=== PATIENT | male | born 1960 | race Caucasian/White ===

== ENCOUNTER 2020-12-28 23:47 | Emergency (ER) | payer OTHER, SELFPAY ==
--- NOTE | 2020-12-28 23:54 | DI.CT.S_ITS ---
PROCEDURE: CT HEAD/BRAIN WO CON INDICATIONS: sudden severe headache TECHNIQUE: Noncontrast 4.5 mm thick angled axial sections acquired from the foramen magnum to the vertex, with coronal and sagittal reformats. For radiation dose reduction, the following was used: automated exposure control, adjustment of mA and/or kV according to patient size. COMPARISON: None. FINDINGS: Image quality: Excellent. CSF spaces: Basal cisterns are patent. Posterior fossa arachnoid cyst which is producing mass effect on the midline of the sella nuclear medicine technician hemispheres. The ventricles are symmetric in size and shape. Brain: Subarachnoid hemorrhage noted in the suprasellar cistern, the basilar cisterns and in the 4th ventricle. There is cerebral volume loss for age, with resultant ventricular and sulcal prominence. There are periventricular and deep white matter chronic small vessel ischemic changes. There is intracranial internal carotid artery atherosclerosis. Skull and face: Calvarium and visualized facial bones appear intact, without suspicious lesions. Sinuses: Visualized sinuses and mastoids are clear. IMPRESSION: Acute subarachnoid hemorrhage involving the suprasellar cistern and basilar cisterns with extension into the 4th ventricle and the cisterna lamina. Finding suspicious for cerebral aneurysm rupture. Recommend CT angiogram of the head for further evaluation. Dictated by: Olya Peres MD, PhD on 12/29/2020 at 7:05 Approved by: Olya Peres MD, PhD on 12/29/2020 at 7:08
[2020-12-28 23:55] VITALS: BP 159/87; PULSE 71; RESP 22; TEMP 37.3; O2SAT 100
[2020-12-29] VITALS (9 sets, daily range): BP systolic 138–166; BP diastolic 73–94; PULSE 59–73; O2SAT 92–98
[2020-12-29 00:09] LABS: Add Manual Diff / Slide Review NO; Basophils Absolute Auto 100 /uL (0-100); Basophils Percent Auto 0.8 % (0-2); Eosinophils Absolute Auto 200 /uL (0-450); Eosinophils Percent Auto 3.1 % (2-4); Hematocrit 39.1 % (41-53); Hemoglobin 13.3 g/dL (13.5-17.5); Lymphocytes Absolute Auto 2500 /uL (1100-4500); Lymphocytes Percent Auto 32.8 % (25-40); Mean Corpuscular HGB Conc 33.9 % (30-36); Mean Corpuscular Hemoglobin 29.3 PG (26-34); Mean Corpuscular Volume 86.3 fL (80-100); Monocytes Absolute Auto 800 /uL (0-900); Monocytes Percent Auto 10.4 % (3-14); Neutrophils Absolute Auto 4100 /uL (1500-7000); Neutrophils Percent Auto 52.9 % (50-75); Platelet Count 231 X10^3/uL (150-400); Red Blood Cell Count 4.53 X10^6/uL (4.5-5.9); Red Cell Distribution Width 13.1 % (11.6-14.8); White Blood Cell Count 7.7 X10^3/uL (4.5-11.0)
--- NOTE | 2020-12-29 00:16 | ED.HA ---
HPI - Headache General Chief Complaint: Headache Stated Complaint: HeadAche Time Seen by Provider: 12/28/20 23:47 Mode of arrival: Ambulatory History of Present Illness HPI Narrative: 60-year-old male nonsmoker with history of renal cancer with nephrectomy presents with his son chief complaint of a relatively sudden onset severe frontal headache that started about 10 or 15 minutes prior to his arrival. He states that quickly alison to the most intense pain he has ever had in his life and was largely frontal. He states it was made worse by motion, bright lights and having his eyes open. He had severe dizziness, lightheadedness as well as blurred vision and nausea. He denies recent trauma. He takes no blood thinners. He denies any history of pain or headaches such as this. He does have some involvement of his neck. He denies any fever or chills. He has no chest pain or shortness of breath. He states that at its most intense he had a 10/10 and now he is down to about a 7/10. Review of Systems Review of Systems Narrative: GENERAL: See HPI HEENT: Denies sinus pain, ear pain, sore throat, difficulty swallowing, dizziness. RESPIRATORY: Denies dyspnea, cough, wheezing, hemoptysis, sputum. CARDIOVASCULAR: Denies chest pain, palpitations, orthopnea, edema, GASTROINTESTINAL: See HPI : Denies dysuria, frequency, incontinence, hematuria, urinary retention. MUSCULOSKELETAL: denies weakness, joint pain, or bony pain SKIN: Denies rash, skin lesions, or other NEUROLOGIC: See HPI PSYCHIATRIC: No concerning psychosocial issues. 12 point review of systems is negative except for those stated above Patient History Social History Smoking Status: Never smoker Smoking Status: Never smoker Exam Narrative Exam Narrative: GENERAL: [60] year old patient appears stated age. Well-developed patient, in obvious severe distress. Requires 2 people to help him get out of the car as he has to dizzy and nauseated. He is covering his forehead and eyes with a towel and complaining of pain HEAD: Atraumatic. Normocephalic. EYES: Pupils equal round and reactive. Extraocular motions intact. No scleral icterus. No injection or drainage. ENT: Nose without bleeding, purulent drainage. Throat without erythema, tonsillar hypertrophy or exudate. Airway patent. NECK: Trachea midline. Non tender CARDIOVASCULAR: Regular rate and rhythm without murmurs, gallops, or rubs. RESPIRATORY: Clear to auscultation. Breath sounds equal bilaterally. No wheezes, rales, or rhonchi. GASTROINTESTINAL: Abdomen soft, non-tender, nondistended. EXTREMITIES: No edema or joint tenderness. BACK: Nontender without deformity or crepitance. No flank tenderness. NEURO: AOx3. 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) Stat Complete Blood Count AUTO DIFF Stat Comprehensive Metabolic Panel Stat 12/29/20 01:10 Partial Thromboplastin Time Stat Prothrombin Time INR Stat Fentanyl (Fentanyl 100 Mcg/2 Ml Inj) 50 mcg IV Q1H PRN PRN Reason: Pain, Severe (7-10) Last Admin: 12/29/20 00:29 Dose: 50 mcg Documented by: Sodium Chloride (Normal Saline 0.9%) 1,000 mls @ 125 mls/hr IV CONT STANISLAV Last Admin: 12/29/20 00:28 Dose: 125 mls/hr Documented by: Nicardipine HCl 25 mg/ Sodium (Chloride) 250 mls @ 50 mls/hr IV TITRATE STANISLAV; Protocol Last Admin: 12/29/20 00:49 Dose: 5 mg/hr, 50 mls/hr Documented by: Discontinued Medications Levetiracetam 1,000 mg/ Sodium (Chloride) 110 mls @ 440 mls/hr IV NOW ONE Stop: 12/29/20 01:21 Ondansetron HCl (Ondansetron 4 Mg/2 Ml Inj) 4 mg IV NOW ONE Stop: 12/28/20 23:56 Last Admin: 12/29/20 00:28 Dose: 4 mg Documented by: Consultations Consultation #1: [id number] - immediately upon review of head CT, images pushed to [facility], request for transfer, [facility] called Consultation #2: [id number] - Dr. Nur (Neurosurgery) agrees with plan for nicardipine drip with goal systolic blood pressure less than 120, requests Keppra 1000 mg prior to departure, will perform CTA down there. Requests immediate transfer to [facility] Emergency Department Vital Signs Vital signs: Vital Signs - 8 hr 12/28/20 23:55 12/29/20 00:00 12/29/20 00:55 Temperature 99.1 F Pulse Rate 71 66 62 Respiratory Rate 22 Blood Pressure 159/87 H 157/74 H 158/88 H Pulse Oximetry 100 98 97 12/29/20 01:00 12/29/20 01:05 12/29/20 01:10 Temperature Pulse Rate 63 61 59 L Respiratory Rate Blood Pressure 153/91 H 166/94 H 151/81 H Pulse Oximetry 95 92 93 12/29/20 01:13 12/29/20 01:15 Temperature Pulse Rate 66 68 Respiratory Rate Blood Pressure 150/81 H Pulse Oximetry 92 94 MDM - Headache Lab Data Result diagrams: 12/29/20 00:02 12/29/20 00:02 Labs: Lab Results 12/29/20 12/29/20 Range/Units 00:02 00:02 WBC 7.7 (4.5-11.0) X10^3/uL RBC 4.53 (4.5-5.9) X10^6/uL Hgb 13.3 L (13.5-17.5) g/dL Hct 39.1 L (41-53) % MCV 86.3 (80-100) fL MCH 29.3 (26-34) PG MCHC 33.9 (30-36) % RDW 13.1 (11.6-14.8) % Plt Count 231 (150-400) X10^3/uL Neut % (Auto) 52.9 (50-75) % Lymph % (Auto) 32.8 (25-40) % [place] % (Auto) 10.4 (3-14) % Eos % (Auto) 3.1 (2-4) % Baso % (Auto) 0.8 (0-2) % Neut # (Auto) 4100 (8211-9763) /uL Lymph # (Auto) 2500 (2129-4138) /uL [place] # (Auto) 800 (0-900) /uL Eos # (Auto) 200 (0-450) /uL Baso # (Auto) 100 (0-100) /uL Sodium 140 (137-145) mmol/L Potassium 3.6 (3.4-5.1) mmol/L Chloride 110 H (98-107) mmol/L Carbon Dioxide 23 (22-32) mmol/L BUN 36 H (9-20) mg/dL Creatinine 1.39 H (0.66-1.25) mg/dL Estimated GFR 52.1 L (>60) mL/min BUN/Creatinine Ratio 25.9 H (6-22) Glucose 120 H (80-110) mg/dL Calcium 9.0 (8.4-10.2) mg/dL Total Bilirubin 0.6 (0.2-1.3) mg/dL AST 26 (17-59) IU/L ALT 18 (<50) IU/L Alkaline Phosphatase 87 (38-126) U/L Total Protein 6.8 (6.3-8.2) g/dL Albumin 3.7 (3.5-5.0) g/dL Globulin 3.1 (1.7-4.1) g/dL Albumin/Globulin Ratio 1.2 (1.0-2.8) Imaging Data CT scan - head: My Impression: Subarachnoid hemorrhage Radiologist's Impression: Extensive subarachnoid hemorrhage within the suprasellar cistern and basilar cisterns and layering dependently within the interpeduncular cistern. Some blood products tracking inferiorly along the 4th ventricle. Subarachnoid blood tracking inferiorly along the anterior brainstem cistern. Highly suspicious for possible aneurysm rupture at the basilar terminus Critical Care Time Critical Care Time Attestation: The high probability of a clinically significant, sudden or life threatening deterioration of the [Neuro] system(s) required my full and direct attention, intervention and personal management. The aggregate critical care time was [30] minutes. This time is in addition to time spent performing reported procedures but includes the following: [x] Data Review and interpretation [x] Patient assessment and monitoring of vital signs [x] Documentation [x] Medication orders and management Discharge Plan Departure Patient Disposition: [facility] Clinical Impression: Subarachnoid hemorrhage
[2020-12-29 00:20] LABS: Alanine Aminotransferase 18 IU/L (<50); Albumin 3.7 g/dL (3.5-5.0); Albumin Globulin Ratio 1.2 (1.0-2.8); Alkaline Phosphatase 87 U/L (38-126); Aspartate Aminotransferase 26 IU/L (17-59); BUN Creatinine Ratio 25.9 (6-22); Bilirubin Total 0.6 mg/dL (0.2-1.3); Blood Urea Nitrogen 36 mg/dL (9-20); Carbon Dioxide 23 mmol/L (22-32); Chloride 110 mmol/L (98-107); Estimated Glomerular Filt Rate 52.1 mL/min (>60); Globulin 3.1 g/dL (1.7-4.1); Glucose 120 mg/dL (80-110); HEMOLYSIS 16 (0-50); Potassium 3.6 mmol/L (3.4-5.1); Sodium 140 mmol/L (137-145); Total Protein 6.8 g/dL (6.3-8.2)
[2020-12-29] MEDS: SODIUM CHLORIDE 0.9% 1,000 ML 125 ML IV (00:28)
[2020-12-29] MEDS: ONDANSETRON 4 MG/2 ML INJ IV (00:28)
[2020-12-29] MEDS: fentaNYL 100 MCG/2 ML INJ 50 MCG IV (00:29)
[2020-12-29] MEDS: NICARDIPINE 25 MG in SODIUM CHLORIDE 0.9% 240 ML 50 ML IV (00:49)
[2020-12-29 01:20] LABS: Prothrombin Time 11.1 SECONDS (10.1-12.7)
[2020-12-29 01:23] LABS: PTT Partial Thromboplastin Tim 28 SECONDS (26.4-36.2)
[2020-12-29] MEDS: levETIRAcetam 1,000 MG in SODIUM CHLORIDE 0.9% 100 ML 440 ML IV (01:27)
[2020-12-29 01:57] LABS: COVID19 - ADMIT (NP swab/PCR) Negative (Negative)
--- NOTE | 2021-01-08 14:02 | PC.NURSE ---
late entry- per RN note the IV fluids continued with the flight crew when patient was transfered to another facility. left at 0130
== END 2020-12-29 01:38 | disposition short-term general hospital (02) ==
PROVIDERS: Emergency Provider Emergency Medicine
DX: I60.9 Nontraumatic subarachnoid hemorrhage, unspecified (principal); R42 Dizziness and giddiness; R11.0 Nausea
CPT/HCPCS: 36415; 70450; 80053; 85025; 85610; 85730; 87635; 96365; 96375; 99284; 99291; C9803; J1953; J2405; J3010